=== PATIENT | female | born 1955 | race Caucasian/White ===

== ENCOUNTER → 2017-07-25 | Outpatient (CLI) | payer OTHER ==
[~2017-07-25] MED LIST: CRUTCH USE; Cyclobenzaprine5 MG PO; HYDACE5 PO; IBUP800 PO; MULVITA; Norco 5-325 Ta1 EACH PO
[2017-07-25 09:06] LABS: BASOPHILS ABSOLUTE AUTO 0.03 K/mm3 (0.00-0.23); BASOPHILS PERCENT AUTO 0 % (0-2); EOSINOPHILS PERCENT AUTO 0 % (0-6); Hematocrit 44.1 % (33.0-51.0); Hemoglobin 15.3 g/dL (11.5-16.0); IMMATURE GRAN ABSOLUTE AUTO 0.05 K/mm3 (0.00-0.10); IMMATURE GRAN PERCENT AUTO 0 % (0-1); LYMPHOCYTES ABSOLUTE AUTO 1.18 K/mm3 (0.84-5.20); LYMPHOCYTES PERCENT AUTO 8 % (21-46); MONOCYTES ABSOLUTE AUTO 0.45 K/mm3 (0.16-1.47); MONOCYTES PERCENT AUTO 3 % (4-13); Mean Corpuscular HGB 28.3 pg (26.0-34.0); Mean Corpuscular HGB Conc 34.7 g/dL (31.5-36.5); Mean Corpuscular Volume 82 fL (80-100); Mean Platelet Volume 9.4 fL (9.1-12.4); NEUTROPHILS ABSOLUTE AUTO 13.53 K/mm3 (1.96-9.15); NEUTROPHILS PERCENT AUTO 89 % (41-73); Platelet Count 368 K/mm3 (150-400); RDW Coefficient Variation 13.5 % (11.7-14.2); RDW Standard Deviation 39.7 fL (35.1-46.3); Red Blood Cell Count 5.41 M/mm3 (3.80-5.20); White Blood Cell Count 15.24 K/mm3 (4.00-11.30)
[2017-07-25 09:18] LABS: Alanine Aminotransfer (ALT/SGP 27 U/L (12-78); Albumin, Blood 4.5 g/dL (3.4-5.0); Albumin/Globulin Ratio 1.1 (0.8-1.8); Alk Phos 98 U/L (40-126); Anion Gap 14 mmol/L (6-16); Aspartate Aminotrans (AST/SGOT 23 U/L (12-37); Blood Urea Nitrogen 12 mg/dL (8-24); Bun/Creatinine Ratio 16.4 (12.0-20.0); CO2, Blood 23 mmol/L (21-32); Calcium, Blood 9.3 mg/dL (8.5-10.1); Chloride, Blood 101 mmol/L (98-108); Creatinine, Blood 0.73 mg/dL (0.40-1.00); Glomerular Filtration Rate >60 (60-); Glucose, Blood 153 mg/dL (70-99); Potassium, Blood 3.6 mmol/L (3.5-5.5); Sodium, Blood 138 mmol/L (136-145); Total Protein, Blood 8.5 g/dL (6.4-8.2)
== END | disposition home or self-care (01) ==
LOC: LAB EV 09:02 → LAB SHORT 09:02
PROVIDERS: Physician Assistant
DX: R10.9 Unspecified abdominal pain (principal)
CPT/HCPCS: 80053; 83690; 85025

== ENCOUNTER 2017-07-29 07:02 | Observation (INO) | payer OTHER ==
[~2017-07-29] VITALS: Ht 185.4 cm; Wt 102.1 kg
[2017-07-29 07:46] LABS: Source, Urine Clean Catch
[2017-07-29 07:53] LABS: BASOPHILS ABSOLUTE AUTO 0.02 K/mm3 (0.00-0.23); BASOPHILS PERCENT AUTO 0 % (0-2); EOSINOPHILS ABSOLUTE AUTO 0.01 K/mm3 (0.00-0.68); EOSINOPHILS PERCENT AUTO 0 % (0-6); Hematocrit 43.4 % (33.0-51.0); IMMATURE GRAN ABSOLUTE AUTO 0.04 K/mm3 (0.00-0.10); IMMATURE GRAN PERCENT AUTO 0 % (0-1); LYMPHOCYTES ABSOLUTE AUTO 0.83 K/mm3 (0.84-5.20); LYMPHOCYTES PERCENT AUTO 6 % (21-46); MONOCYTES PERCENT AUTO 6 % (4-13); Mean Corpuscular HGB 28.2 pg (26.0-34.0); Mean Corpuscular HGB Conc 34.6 g/dL (31.5-36.5); Mean Corpuscular Volume 82 fL (80-100); Mean Platelet Volume 9.3 fL (9.1-12.4); NEUTROPHILS ABSOLUTE AUTO 11.19 K/mm3 (1.96-9.15); NEUTROPHILS PERCENT AUTO 87 % (41-73); Platelet Count 331 K/mm3 (150-400); RDW Coefficient Variation 13.1 % (11.7-14.2); RDW Standard Deviation 38.6 fL (35.1-46.3); Red Blood Cell Count 5.31 M/mm3 (3.80-5.20); White Blood Cell Count 12.89 K/mm3 (4.00-11.30)
[2017-07-29 07:55] LABS: Bilirubin, Urine Neg (Neg); Blood, Urine 3+ (Neg); Glucose Qualitative, Urine Neg (Neg); Ketones, Urine 3+ (Neg); Leukocyte Esterase, Urine Neg (Neg); Nitrite, Urine Neg (Neg); Protein, Urine 3+ (Neg); Urobilinogen, Urine 1+ (Normal)
[2017-07-29 07:57] LABS: Appearance, Urine Clear (Clear); Color, Urine Yellow (P-Yellow)
[2017-07-29 08:02] LABS: Red Blood Cells, Urine 0-2 /hpf (0-2); Squamous Epithelial Cells Many /hpf (Few); White Blood Cells, Urine Not Seen /hpf (0-5)
[2017-07-29 08:03] LABS: Bacteria Not Seen /hpf
[2017-07-29 08:22] LABS: Alanine Aminotransfer (ALT/SGP 24 U/L (12-78); Albumin, Blood 4.1 g/dL (3.4-5.0); Albumin/Globulin Ratio 1.1 (0.8-1.8); Alk Phos 97 U/L (50-136); Anion Gap 10 mmol/L (6-16); Aspartate Aminotrans (AST/SGOT 16 U/L (12-37); Bilirubin, Total 1.6 mg/dL (0.1-1.0); Blood Urea Nitrogen 9 mg/dL (8-24); CO2, Blood 25 mmol/L (21-32); Calcium, Blood 9.4 mg/dL (8.5-10.1); Chloride, Blood 103 mmol/L (98-108); Globulin, Blood 3.9 g/dL (2.2-4.0); Glomerular Filtration Rate >60 (60-); Glucose, Blood 132 mg/dL (70-99); Potassium, Blood 3.6 mmol/L (3.5-5.5); Sodium, Blood 138 mmol/L (136-145)
== END 2017-07-29 16:52 | disposition home or self-care (01) ==
LOC: ER 07:02 → SURS 07:03
PROVIDERS: Physician Assistant; Surgery
PROC: 0FT44ZZ Resection of Gallbladder, Percutaneous Endoscopic Approach (ICD-10-PCS; principal; 2017-07-29 13:15)
DX: K80.10 Calculus of gallbladder with chronic cholecystitis without obstruction (principal); Z87.891 Personal history of nicotine dependence
CPT/HCPCS: 76705; 80053; 81001; 83690; 84484; 85025; 88304; 93005; 93010; 96365; 96375; 96376; 99285; J0295; J0690; J1100; J1885; J2250; J2405; J2710; J3010; J7030; J7120

== ENCOUNTER 2021-04-30 08:21 | Day surgery (SDC) | payer OTHER ==
[~2021-04-30] VITALS: Ht 182.9 cm; Wt 97.3 kg
== END 2021-04-30 11:47 | disposition home or self-care (01) ==
LOC: ORSCSDS 08:21
PROVIDERS: Internal Medicine Gastroenterology
PROC: 0DBL8ZX Excision of Transverse Colon, Via Natural or Artificial Opening Endoscopic, Diagnostic (ICD-10-PCS; principal; 2021-04-30 09:30)
PROC: 0DBP8ZX Excision of Rectum, Via Natural or Artificial Opening Endoscopic, Diagnostic (ICD-10-PCS; principal; 2021-04-30 09:30)
PROC: 0DBN8ZX Excision of Sigmoid Colon, Via Natural or Artificial Opening Endoscopic, Diagnostic (ICD-10-PCS; principal; 2021-04-30 09:30)
PROC: 0DBM8ZX Excision of Descending Colon, Via Natural or Artificial Opening Endoscopic, Diagnostic (ICD-10-PCS; principal; 2021-04-30 09:30)
PROC: 0DBK8ZX Excision of Ascending Colon, Via Natural or Artificial Opening Endoscopic, Diagnostic (ICD-10-PCS; principal; 2021-04-30 09:30)
DX: Z12.11 Encounter for screening for malignant neoplasm of colon (principal); Z86.010 Personal history of colon polyps; Z80.0 Family history of malignant neoplasm of digestive organs; D12.3 Benign neoplasm of transverse colon; D12.2 Benign neoplasm of ascending colon; K62.1 Rectal polyp; K57.30 Diverticulosis of large intestine without perforation or abscess without bleeding; K64.4 Residual hemorrhoidal skin tags; Z87.891 Personal history of nicotine dependence
CPT/HCPCS: 88305; J2405; J2704; J7120

== ENCOUNTER → 2022-10-13 | Outpatient (CLI) | payer OTHER | LOC: LAB SHORT 15:01 → LAB 15:01 | DX: B35.1 Tinea unguium (principal) | CPT/HCPCS: 87102 ==

== ENCOUNTER → 2023-03-16 | Outpatient (CLI) | payer OTHER | LOC: LAB 15:07 → LAB SHORT 15:07 | DX: R30.0 Dysuria (principal) | CPT/HCPCS: 87086 ==

== ENCOUNTER → 2023-03-21 | Outpatient (CLI) | payer OTHER ==
[2023-03-30 21:59] LABS: HPV SOURCE Endocervical
== END ==
LOC: LAB 14:15 → LAB SHORT 14:15
PROVIDERS: Family Medicine
DX: N76.0 Acute vaginitis (principal); R10.2 Pelvic and perineal pain
CPT/HCPCS: 87070; 87147; 87205

== ENCOUNTER 2024-02-23 10:23 | Day surgery (SDC) | payer OTHER ==
[2024-02-22 18:51] LABS: BASOPHILS ABSOLUTE AUTO 0.03 K/mm3 (0.00-0.23); BASOPHILS PERCENT AUTO 1 % (0-2); EOSINOPHILS ABSOLUTE AUTO 0.08 K/mm3 (0.00-0.68); EOSINOPHILS PERCENT AUTO 2 % (0-6); Hematocrit 41.5 % (33.0-51.0); IMMATURE GRAN ABSOLUTE AUTO 0.01 K/mm3 (0.00-0.10); IMMATURE GRAN PERCENT AUTO 0 % (0-1); LYMPHOCYTES ABSOLUTE AUTO 1.71 K/mm3 (0.84-5.20); LYMPHOCYTES PERCENT AUTO 34 % (21-46); MONOCYTES ABSOLUTE AUTO 0.43 K/mm3 (0.16-1.47); MONOCYTES PERCENT AUTO 9 % (4-13); Mean Corpuscular HGB 28.2 pg (26.0-34.0); Mean Corpuscular HGB Conc 33.7 g/dL (31.5-36.5); Mean Corpuscular Volume 84 fL (80-100); Mean Platelet Volume 9.4 fL (9.1-12.4); NEUTROPHILS ABSOLUTE AUTO 2.82 K/mm3 (1.96-9.15); NEUTROPHILS PERCENT AUTO 55 % (41-73); Platelet Count 269 K/mm3 (150-400); RDW Coefficient Variation 13.3 % (11.7-14.2); Red Blood Cell Count 4.97 M/mm3 (3.80-5.20); White Blood Cell Count 5.08 K/mm3 (4.00-11.30)
[2024-02-22 19:28] LABS: Bun/Creatinine Ratio 32.9 (12.0-20.0); Calcium, Blood 9.5 mg/dL (8.5-10.1); Creatinine, Blood 0.55 mg/dL (0.40-1.00); Potassium, Blood 3.8 mmol/L (3.5-5.5)
[~2024-02-23] VITALS: Ht 177.8 cm; Wt 95.8 kg
[2024-02-23] VITALS (26 sets, daily range): BP systolic 120–188; BP diastolic 56–95
[2024-02-23] MEDS ORDERED: Dexamethasone Sod Phos 10 MG/ML 1ML VIAL ONE (10:44)
[2024-02-23] MEDS ORDERED: propofoL 20 ML IV ONE (10:44)
[2024-02-23] MEDS ORDERED: Sugammadex Sodium 200 MG/2ML SDV (100 MG/ML) ONE (10:44)
[2024-02-23] MEDS ORDERED: Ketorolac Tromethamine 30mg Vial ONE (10:44)
[2024-02-23] MEDS ORDERED: Ondansetron HCl 2 MG / ML 2ML Vial ONE (10:44)
[2024-02-23] MEDS ORDERED: FentaNYL Citrate 50 MCG/ML 5 ML Injection ONE ×2 (10:44→13:27)
[2024-02-23] MEDS ORDERED: Rocuronium Bromide 10 MG/ML 5ML Injection IV ONE ×3 (10:45→13:56)
[2024-02-23] MEDS ORDERED: Lidocaine HCl 2% 20 ML MDV ONE (10:45)
[2024-02-23] MEDS ORDERED: CeFAZolin Sodium 2,000 MG in NS 100 ML IV SCH ×2 (10:55→19:00)
[2024-02-23] MEDS ORDERED: Lactated Ringer's 1,000 ML IV SCH ×2 (10:55→15:00)
[2024-02-23] MEDS ORDERED: CeFAZolin Sodium 2,000 MG VIAL ONE (11:02)
[2024-02-23] MEDS ORDERED: Scopolamine Hydrobromide Patch TOP ONE (11:30)
[2024-02-23] MEDS ORDERED: Bupivacaine 0.5% HCl 5 MG/ML 30MLVIAL ONE (11:59)
[2024-02-23] MEDS ORDERED: Glycopyrrolate 0.2 MG/ML 5ML VIAL ONE (13:02)
[2024-02-23] MEDS ORDERED: Naloxone HCl 0.4MG / ML 1ML Vial IV PRN (15:00)
[2024-02-23] MEDS ORDERED: Ondansetron HCl 2 MG / ML 2ML Vial IV PRN (15:00)
[2024-02-23] MEDS ORDERED: HYDROmorphone HCl/Pf 1MG SYR IV PRN (15:00)
[2024-02-23] MEDS ORDERED: OxyCODONE 5 mg/Acetamin 325 mg TABLET PO PRN (15:00)
[2024-02-23] MEDS ORDERED: Ondansetron 4 MG TAB PO PRN (15:00)
[2024-02-23] MEDS ORDERED: FLU VACC TS2024-25(6MOS UP)/PF 45 MCG/0.5 ML SYRINGE IM SCH (15:05)
[2024-02-23] MEDS ORDERED: Simethicone 80 MG Chew PO PRN (15:05)
[2024-02-23] MEDS ORDERED: Promethazine HCl 25 MG Tab PO PRN (15:05)
[2024-02-23] MEDS ORDERED: Promethazine HCl 12.5 MG Supp PR PRN (15:05)
[2024-02-23] MEDS ORDERED: Ketorolac Tromethamine 30mg Vial IV PRN (15:10)
[2024-02-23] MEDS ORDERED: HYDROmorphone HCl/Pf 1MG SYR ONE ×2 (15:39→15:58)
[2024-02-23] MEDS ORDERED: FentaNYL Citrate 50 MCG/ML 2 ML Injection ONE ×2 (15:39→15:57)
--- NOTE | 2024-02-23 17:18 | NUR ---
PT ARRIVED TO UNIT FROM PACU MOANING AND C/O OF CRAMPING PAIN. RATES 5/10. PROVIDED K PAD FOR COMFORT. MEDICATED PER ORDERS W/ 0.5 MG IV DILAUDID. PROVIDED SNACKS AND DISCUSSED DOING PO PAIN MEDS ONCE PT IS ABLE TO TOLERATE PO INTAKE. ORIENTED TO USE OF CALL LIGHT. SPOUSE BEDSIDE.
[2024-02-24 02:09] VITALS: BP 157/77
--- NOTE | 2024-02-24 05:10 | NUR ---
PTS URINE IS DARK SASHA,AND STATOR WINDER WAS UNABLE TO GET ADEQUATE SAMPLE AMT TO COMPLETE LABS ORDERED.IV FLUIDS INFUSING.PT REPORTS TO ME SHE HAS HAD NAUSEA AND HAS BEEN TAKING LITTLE PO.I CALLED DR [facility] AND REQUESTED RETURN CALL.
[2024-02-24] MEDS ORDERED: NS 500 ML IV SCH (05:35)
[2024-02-24] MEDS ORDERED: NS 500 ML IV ONE (05:35)
[2024-02-24 07:25] VITALS: BP 132/68
[2024-02-24 07:27] LABS: BASOPHILS ABSOLUTE AUTO 0.02 K/mm3 (0.00-0.23); BASOPHILS PERCENT AUTO 0 % (0-2); EOSINOPHILS ABSOLUTE AUTO 0.01 K/mm3 (0.00-0.68); EOSINOPHILS PERCENT AUTO 0 % (0-6); Hematocrit 39.3 % (33.0-51.0); Hemoglobin 13.3 g/dL (11.5-16.0); IMMATURE GRAN ABSOLUTE AUTO 0.04 K/mm3 (0.00-0.10); IMMATURE GRAN PERCENT AUTO 0 % (0-1); LYMPHOCYTES ABSOLUTE AUTO 1.19 K/mm3 (0.84-5.20); LYMPHOCYTES PERCENT AUTO 10 % (21-46); MONOCYTES ABSOLUTE AUTO 0.82 K/mm3 (0.16-1.47); MONOCYTES PERCENT AUTO 7 % (4-13); Mean Corpuscular HGB 28.4 pg (26.0-34.0); Mean Corpuscular HGB Conc 33.8 g/dL (31.5-36.5); Mean Corpuscular Volume 84 fL (80-100); Mean Platelet Volume 9.2 fL (9.1-12.4); NEUTROPHILS ABSOLUTE AUTO 9.79 K/mm3 (1.96-9.15); NEUTROPHILS PERCENT AUTO 83 % (41-73); Platelet Count 214 K/mm3 (150-400); RDW Coefficient Variation 13.3 % (11.7-14.2); RDW Standard Deviation 40.6 fL (35.1-46.3); Red Blood Cell Count 4.69 M/mm3 (3.80-5.20); White Blood Cell Count 11.87 K/mm3 (4.00-11.30)
--- NOTE | 2024-02-24 07:43 | NUR ---
SHIFT SUMMARY; PATIENT SLEPT IN SHORT INTERVALS. HAD MOSTLY NAUSEA UNTIL LATER IN SHIFT, THEN HAD EMESIS SEVERAL TIMES. TALK TO HOSPITALIST REGARD HTN EARLY IN SHIFT, SEEMS TO BE R/T PAIN. NO NEW MEDS ORDERED. INFORMATION OFFICER TALK WITH HOSPITALIST AROUND 0500, ORDER FOR IV BOLUS RECEIVED AND STARTED. PATIENT DID NOT UP SHE DECLINED D/T NAUSEA.
[2024-02-24] MEDS ORDERED: Dexamethasone Sod Phos 10 MG/ML 1ML VIAL IV ONE (11:00)
[2024-02-24] MEDS ORDERED: Percocet 5-3251 EACH PO (11:00)
[2024-02-24] MEDS ORDERED: SIME80CH PO (11:01)
[2024-02-24] MEDS ORDERED: PROM25 PO (11:01)
--- NOTE | 2024-02-24 11:30 | NUR ---
Pt. is awake and sitting up in a chair when she welcomes my visit. Spouse is at chair-side. The Pt. is known to this programming coordinator from the community. Facilitated a life review and considered matters of the couples recent marriage. Pt. displayed evidence of being engaged, aware, and motivated. Prayed with the Pt. and spouse. Dequan verbalized gratitude for the spiritual care visit.
[2024-02-24 12:50] VITALS: BP 123/51
--- NOTE | 2024-02-24 12:50 | NUR ---
DISCHARGE NOTE PT AMBULATING INDEPENDENTLY, PAIN IS TOLERABLE W/ PRN PAIN MEDS, PT TOLERATING SMALL AMNTS OF REG DIET AND DRINKING PO FLUIDS. VOIDING APPROPRIATELY. PT SATURATING 25%-50% OF EMMA PAD EVERY 2-3 HOURS. DISCHARGE INSTRUCTIONS REVIEWED W/ PT, COPY GIVEN TO PT. PT HAS PRESCRIPTIONS FILLED AT HOME. ABD LAP SITES C/D/I. VSS. ABD BINDER IN PLACE. PT DC'D VIA WC TO PRIVATE RIDE HOME IN STABLE CONDITION W/ ALL BELONGINGS.
== END 2024-02-24 12:56 | disposition home or self-care (01) ==
LOC: ORSCMMR 10:23 → ORD 11:45 → SURS 16:30 → ORSCMMR 02-24 12:56 → ORD 03-21 11:30
PROVIDERS: Obstetrics & Gynecology
DX: N95.0 Postmenopausal bleeding (principal); D25.9 Leiomyoma of uterus, unspecified; N83.292 Other ovarian cyst, left side; R10.2 Pelvic and perineal pain; Z86.16 Personal history of COVID-19; Z87.891 Personal history of nicotine dependence
CPT/HCPCS: 36415; 80048; 85025; 86850; 86900; 86901; 88307; 94762; A9270; J0690; J1100; J1171; J1885; J2405; J2704; J3010; J7040; J7050; J7120